=== PATIENT | female | born 1975 | race American Indian/Alaskan Native ===

== ENCOUNTER 2021-12-15 07:58 | Day surgery (SDC) | payer BC ==
[2021-12-09 13:32] LABS: Blood Urea Nitrogen 8 mg/dL (7-17); Calcium 9.5 mg/dL (8.4-10.2); Hemolysis Index 9
[2021-12-09 13:34] LABS: BUN/Creatinine Ratio 16
[2021-12-09 14:11] LABS: Hematocrit 41.1 % (30.3-42.9); Hemoglobin 13.4 gm/dl (10.1-14.3); Mean Corpuscular HGB Conc 33 % (30-34); Mean Corpuscular Volume 84 fl (79-97); Platelet Count 311 K/mm3 (140-440); Red Blood Count 4.89 M/mm3 (3.65-5.03); Red Cell Distribution Width 14.9 % (13.2-15.2)
--- NOTE | 2021-12-14 16:15 | Short Stay Summary ---
Short Stay Documentation Date of service: 12/09/21 Narrative H&P: This is a 46 years old female who presents with menstrual disorder. The symptoms began 3 years ago. On a scale of mild to severe, the intensity is described as a severe. She complains of irregular menses and heavy bleeding. Menstrual flow lasts 7 days. She use to have periods q2wks to [id number] and we she bled she bled heavy 4/7days. She goes to the clinic at work wihen she bleeds heavy to have her hgb checked. She was told she is anemic and she takes OTC Fe. States she was given a "hormone" pill when on her period when she had [facility]. Her US was normal at [facility] ~4years ago. She does not knowthe name of the pill. She did not have a period for 7months then she started having heavy periods monthly again 07/18-09/17. Past History : 2 Term Births: 2 Living Children: 2 # 1 Delivery date: 1999 Delivery type: # 2 Delivery type: CRAS History Operations: C-sectionx2 Anesthesia Complications: yes Abnormal PAP: negative Infection History HIV Risk Eval: no Hx of STD: None Active Medications (reviewed today): ergocalciferol (vitamin D2) 1,250 mcg (50,000 unit) capsule (ergocalciferol (vitamin d2)) hydrochlorothiazide 12.5 mg capsule (hydrochlorothiazide) ferrous sulfate 27 mg iron tablet (ferrous sulfate) Current Allergies (reviewed today): No known allergies Past Medical History: Reviewed history from 10/07/2021 and no changes required: Anemia Past Surgical History: Reviewed history from 10/07/2021 and no changes required: C-sectionx2 Family History Summary: Reviewed history and no changes required: 12/14/2021 Other Family Member - Has No Family History of Uterine Cancer - Entered On: 10/07/2021 Other Family Member - Has No Family History of Small Bowel Cancer - Entered On: 10/07/2021 Other Family Member - Has No Family History of Stomach Cancer - Entered On: 10/07/2021 Other Family Member - Has No Family History of Pancreatic Cancer - Entered On: 10/07/2021 Other Family Member - Has No Family History of Ovarvian Cancer - Entered On: 10/07/2021 Other Family Member - Has No Family History of Kidney/Urinary Tract Cancer - Entered On: 10/07/2021 Other Family Member - Has No Family History of Spontaneous DVT-PE - Entered On: 10/07/2021 Other Family Member - Has No Family History of Colon Cancer - Entered On: 10/07/2021 Other Family Member - Has No Family History of Brain Cancer - Entered On: 2020 Other Family Member - Has No Family History of Breast Cancer - Entered On: 10/07/2021 Other Family Member - Has No Family History of Biliary Tract Cancer - Entered On: 10/07/2021 Social History: Reviewed history from 10/07/2021 and no changes required: Patient is Smoking History: Patient has never smoked. Risk Factors: Smoked Tobacco Use: Never smoker Smokeless Tobacco Use: Never Passive Smoke Exposure: no HIV High Risk Behavior: no Exercise: yes Seatbelt Use: 100 % Alcohol Use: no Drug Use: no Physical Exam Appearance: well developed, well nourished, no acute distress Genitourinary Exam Uterus: fixed, deferred for EUA Impression & Recommendations: Problem # 1: Excessive and frequent menstruation with irregular cycle (ICD-6 26.6) ([id number]) She was unable to tolerate EMB/SIS in the ofice and desires to proceed with diagnostic hysteroscopy w/ D&C and any other indicated procedures Consent reviewed and signed . Possible laparoscopy or laparotomy explained to patient. The risks and alternatives for this surgery were reviewed with the patient. She was informed of possible bleeding,uterine perfoation, infection, injury to bowel, bladder, ureters or other adjacent organs. The patient was instructed/informed the following: The normal length of hospital stay for this procedure. Nothing to eat or drink after midnight the evening prior to surgery. Infection precautions reviewed, patient to call for any signs or symptoms of infection. The usual discomforts associated with this procedure were detailed. Proper use of pain medicines was reviewed. Patient was given ample opportunity to have all her questions answered before signing informed consent. Patient has been reassessed/reevaluated/re-examined. H&P has been reviewed. No interval changes. - History Principal diagnosis: Menometrorrhagia - Allergies and Medications Current Medications: Allergies No Known Allergies Allergy (Unverified 12/08/21 17:53) Home Medications Medication Instructions Recorded Confirmed Last Taken Type Ferrous Sulfate [Iron 325 MG] 325 mg PO DAILY 12/08/21 12/08/21 Unknown History hydroCHLOROthiazide 12.5 mg PO DAILY 12/09/21 12/09/21 Unknown History [Hydrochlorothiazide] - Brief post op/procedure progress note Date of procedure: 12/15/21 Pre-op diagnosis: Menometrorrhagia Post-op diagnosis: same Procedure: Diagnostic hysteroscopy with cervical dilation and uterine curettage Anesthesia: MAC Findings: Grossly normal intrauterine cavity. Surgeon: ONDINA BLANCO Estimated blood loss: minimal Pathology: list (Endometrial tissue) Specimen disposition: to lab Condition: stable - Disposition Condition at discharge: Good Disposition: HOME / SELF CARE / HOMELESS - Discharge Diagnoses (1) Menometrorrhagia Status: Acute Short Stay Discharge Plan Activity: other (No sex. No driving for 24 hours) Weight Bearing Status: Full Weight Bearing Diet: regular Special Instructions: no heavy lifting (Greater than 25 pounds) Follow up with: ISABELA GIL MD [Primary Care Provider] - 7 Days ONDINA BLANCO MD [Staff Physician] - (As scheduled) Prescriptions: RX: Ibuprofen [Motrin 800 MG tab] 800 mg PO TID PRN #30 tablet PRN Reason: Pain RX: oxyCODONE /ACETAMINOPHEN [Percocet 5/325 mg] 1 - 2 tab PO Q6HR PRN #7 tablet PRN Reason: Pain
[2021-12-15] MEDS ORDERED: LACTATED RINGERS 1,000 ML ONE (08:50)
[2021-12-15] MEDS ORDERED: LACTATED RINGERS 1,000 ML IV SCH (10:00)
[2021-12-15] MEDS ORDERED: HYDROmorphone 1 MG/1 ML INJ IV PRN ×2 (10:00)
[2021-12-15] MEDS ORDERED: ONDANSETRON 4 MG/2 ML INJ IV PRN (10:00)
--- NOTE | 2021-12-15 10:01 | Anesthesia Day of Surgery ---
Anesthesia Day of Surgery - Day of Surgery Patient Examined: Yes Patient H&P Reviewed: Yes Patient is NPO: Yes
--- NOTE | 2021-12-15 10:02 | Anesthesia Consultation ---
Anesthesia Consult and Med Hx Date of service: 12/15/21 - Airway Anesthetic Teeth Evaluation: Good, Crowns ROM Head & Neck: Adequate Mental/Hyoid Distance: Adequate Mallampati Class: Class II Intubation Access Assessment: Good - Pre-Operative Health Status ASA Pre-Surgery Classification: ASA2 Proposed Anesthetic Plan: General - Pulmonary Hx Smoking: No - Cardiovascular System Hx Hypertension: Yes - Central Nervous System Hx Psychiatric Problems: No - Hematic Hx Anemia: Yes Hx Sickle Cell Disease: No - Other Systems Hx Cancer: No Hx Obesity: No
[2021-12-15] MEDS ORDERED: MIDAZOLAM 2 MG/2 ML INJ ONE (11:40)
[2021-12-15] MEDS ORDERED: LIDOCAINE MPF (2%) 20 MG/1 ML VIAL 5 ML ONE (11:40)
[2021-12-15] MEDS ORDERED: fentaNYL 100 MCG/2 ML INJ ONE (11:40)
[2021-12-15] MEDS ORDERED: propofoL 200 MG/20 ML VIAL IV ONE (11:41)
[2021-12-15] MEDS ORDERED: SODIUM CHLORIDE 0.9% IRRIG SOLN 2000 ML IR ONE (12:10)
--- NOTE | 2021-12-15 13:01 | Operative Report ---
Operative Report Operative Report: Date: 12/15/2021 PREOPERATIVE DIAGNOSES: 1. menometrorrhagia 2. unable to tolerate endometrial biopsy in office POSTOPERATIVE DIAGNOSES: 1. menometrorrhagia 2. able to tolerate endometrial biopsy in office PROCEDURE PERFORMED: 1. Hysteroscopy. 2. Dilation and curettage (D&C) ANESTHESIA: Monitored anesthetic ESTIMATED BLOOD LOSS: Less than [] cc. INDICATIONS: This is a 46-year-old female that presents menometrorrhagia. She was unable to tolerate an endometrial biopsy performed in the office. FINDINGS: Exam under anesthesia revealed the uterus to be approximately 12 weeks fixed. Patient's vagina is stenotic and narrows proximal to the cervix. The cervix was retracted into the vagina, especially the anterior lip, and an extreme anterior position deviated to the left. Immobile. PROCEDURE: The patient was seen in the preoperative suite. Expected procedure and postoperative course discussed with her. She was taken to the operative suite where monitored anesthetic care was performed. She was placed in a dorsal lithotomy position. . A bimanual exam was done, the uterus was found to be 12 weeks. She was prepped and draped in the normal sterile fashion. Timeout was performed. Her bladder was drained with the red Owusu catheter which produced approximately 50 cc of clear yellow urine. The cervix and vagina were grossly normal with no obvious masses or deformities. A bivalve operative speculum was placed in the vagina and with much manipulation the the posterior lip of the cervix was grasped with the single-tooth tenaculum. The uterus was sounded to ~10 cm. The cervix was progressively dilated to allow the diagnostic hysteroscope. Under direct visualization, the ostia were within normal limits. The endometrial lining appeared normal, there was no obvious evidence of malignancy. The hysteroscope was removed and a small sharp curette was placed intrauterine very carefully using anterior wall for guidance. Endometrial curettings were obtained. The endometrial sampling was placed on Telfa pad and sent to Pathology for evaluation, permanent. The hysteroscope was introduced again, no evidence of perforation was noted. At this point procedure was ended. The single-tooth tenaculum and speculum were removed. The cervix was found to be hemostatic. Counts were correct. Patient was taken to the PACU stable. Distention fluid: Normal saline Deficit: 50 mL, the Wizeline fluid management system was used with the real estate representative present.
[2021-12-15] MEDS ORDERED: oxyCODONE /ACETAMINOPHEN 5-325MG TAB PO PRN (13:45)
[2021-12-15 14:32] VITALS: BP 139/53
[2021-12-15] MEDS ORDERED: FAT EMULSIONS 20% IV ONE (15:27)
--- NOTE | 2021-12-15 16:07 | Post Anesthesia Evaluation ---
- Post Anesthesia Evaluation Patient Participated: Yes Airway Patent: Yes Stable Respiratory Function: Yes Nausea/Vomiting: No Temp > 96.8F: Yes Pain Manageable: Yes Adequeate Hydration: Yes Anesthesia Complications: No Block Receding Appropriately: Not Applicable Patient on Ventilator: No
== END 2021-12-15 14:25 | disposition home or self-care (01) ==
LOC: OR 07:58
PROVIDERS: ATTEND Obstetrics & Gynecology
DX: N92.1 Excessive and frequent menstruation with irregular cycle (principal); I10 Essential (primary) hypertension; D64.9 Anemia, unspecified; Z79.899 Other long term (current) drug therapy; Z98.890 Other specified postprocedural states; Z20.822 Contact with and (suspected) exposure to COVID-19
CPT/HCPCS: 36415; 58558; 80048; 81025; 85027; 88305; J2250; J2704; J3010; J3490; J7120; U0003